=== PATIENT | male | born 1970 | race Caucasian/White ===

== ENCOUNTER 2022-06-08 10:47 | Day surgery (SDC) | payer MEDICAID ==
[~2022-06-08 10:47] MED LIST: FAMO20 PO; INSU200I4 SQ; METF-1211 PO; OMEP20CA12 PO; PLEC3TAB2 PO; SODIUM CHLORIDE 0.9% 1,000 ML ONE
[2022-06-08] MEDS ORDERED: SODIUM CHLORIDE 0.9% 1,000 ML IV ONE (11:00)
[2022-06-08 11:12] LABS: COVID AG,FIA SOURCE NASAL SWAB
[2022-06-08 12:07] LABS: GLUCOMETER DEV NAME(LOC) SDS.; GLUCOSE,POINT OF CARE 174 MG/DL (70-110)
[2022-06-13] MEDS ORDERED: GABA-1181 PO (13:06)
[2022-06-13] MEDS ORDERED: ACYC-138 PO (13:06)
== END 2022-06-08 15:10 | disposition home or self-care (01) ==
LOC: SURGERY 10:47
PROVIDERS: ATTEND Internal Medicine Gastroenterology
DX: R10.13 Epigastric pain (principal); K29.50 Unspecified chronic gastritis without bleeding; E11.9 Type 2 diabetes mellitus without complications; G89.29 Other chronic pain; Z79.899 Other long term (current) drug therapy; Z98.890 Other specified postprocedural states; Z20.822 Contact with and (suspected) exposure to COVID-19
CPT/HCPCS: 43239; 87426; 88305; 82962; C1769; J7030; C9803

== ENCOUNTER 2022-06-14 08:07 | Day surgery (SDC) | payer MEDICAID ==
[~2022-06-14] VITALS: Ht 180.3 cm; Wt 89.1 kg
[~2022-06-14 08:07] MED LIST changes: +ACYC-138 PO; +GABA-1181 PO; -OMEP20CA12 PO; -PLEC3TAB2 PO; +SODIUM CHLORIDE 0.9% 1,000 ML IV ONE
[2022-06-14 08:44] LABS: COVID AG,FIA SOURCE NASOPHARYNGEAL
[2022-06-14 09:16] LABS: GLUCOMETER DEV NAME(LOC) SDS.; GLUCOSE,POINT OF CARE 139 MG/DL (70-110)
[2022-06-14] MEDS ORDERED: SODIUM CHLORIDE 0.9% 1,000 ML ONE (10:16)
[2022-06-14] MEDS ORDERED: PROPOFOL 1% 20 ML VIAL IVP ONE ×2 (12:00)
[2022-06-14] MEDS ORDERED: LIDOCAINE/PF 2% 5 ML SYRINGE IVP ONE ×2 (12:00)
== END 2022-06-14 12:00 | disposition home or self-care (01) ==
LOC: SURGERY 08:07
PROVIDERS: ATTEND Internal Medicine Gastroenterology
DX: K64.0 First degree hemorrhoids (principal); E11.9 Type 2 diabetes mellitus without complications; Z79.899 Other long term (current) drug therapy; Z20.822 Contact with and (suspected) exposure to COVID-19; Z98.890 Other specified postprocedural states
CPT/HCPCS: 45378; 87426; 82962; C9803; J2704; J3490; J7030

== ENCOUNTER 2023-04-18 13:41 | Emergency (ER) | payer OTHER ==
[~2023-04-18] VITALS: Ht 180.3 cm; Wt 80.0 kg
[~2023-04-18 13:41] MED LIST changes: -SODIUM CHLORIDE 0.9% 1,000 ML IV ONE; -SODIUM CHLORIDE 0.9% 1,000 ML ONE
[2023-04-18 13:45] VITALS: TEMP 98.4
[2023-04-18] MEDS ORDERED: EMPA10TA3 PO (13:47)
[2023-04-18] MEDS ORDERED: PLEC3TAB2 PO (13:48)
[2023-04-18] MEDS ORDERED: GABA600T10 PO (13:48)
[2023-04-18] MEDS ORDERED: SODIUM CHLORIDE 0.9% 1,000 ML IV ONE ×3 (14:15→15:15)
[2023-04-18 14:31] LABS: BASOPHILS % (AUTO) 0.5 % (0.0-2.0); HEMATOCRIT 36.3 % (41-53); LYMPHOCYTES # (AUTO) 1.6 K/uL (1.0-4.8); LYMPHOCYTES % (AUTO) 19.7 % (22.0-44.0); MEAN CORPUSCULAR HEMOGLOBIN 28.9 pg (26.0-34.0); MEAN CORPUSCULAR HGB CONC 33.2 G/dL (31.0-37.0); MEAN CORPUSCULAR VOLUME 87 fL (80-100); MONOCYTES # (AUTO) 0.7 K/uL (0.1-1.0); MONOCYTES % (AUTO) 8.7 % (2.0-9.0); NEUTROPHILS # (AUTO) 5.7 K/uL (1.8-7.7); NEUTROPHILS % (AUTO) 69.1 % (40.0-70.0); PLATELET COUNT (AUTO) 187 K/uL (150-450); RED BLOOD CELL COUNT(AUTO) 4.16 MIL/uL (4.50-5.90); RED CELL DISTRIBUTION WIDTH 13.8 % (11.5-14.5); WHITE BLOOD COUNT (AUTO) 8.2 K/uL (4.5-11.0)
[2023-04-18 14:45] LABS: ANION GAP 7 mmol/L (8-16); CARBON DIOXIDE 29 mmol/L (22-29); CHLORIDE 99 mmol/L (98-107); GLOMERULAR FILTR. RATE CALC > 60 mL/min (>60); GLUCOSE,RANDOM 112 mg/dL (70-110); POTASSIUM 4.1 mmol/L (3.5-5.1); SODIUM SERUM 135 mmol/L (136-145); TROPONIN I-HIGH SENSITIVITY 6 ng/L (<76); UREA NITROGEN, BLOOD 21 mg/dL (7-18)
[2023-04-18 14:46] LABS: LACTIC ACID 0.8 mmol/L (0.4-2.0)
[2023-04-18 14:47] LABS: B-TYPE NATRIURETIC PEPTIDE 50 pg/mL (0-100)
[2023-04-18 14:50] LABS: ALANINE AMINOTRANSFERASE 15 U/L (12-78); ALBUMIN 3.6 g/dL (3.4-5.0); ALKALINE PHOSPHATASE 78 U/L (46-116); ASPARTATE AMINOTRANSFERASE 8 U/L (15-37); BILIRUBIN,TOTAL 0.4 mg/dL (0.1-1.0); LIPASE 37 U/L (16-77); TOTAL PROTEIN, SERUM 7.2 g/dL (6.4-8.2)
[2023-04-18] MEDS ORDERED: ACETAMINOPHEN 500 MG TABLET PO ONE (15:15)
[2023-04-18] MEDS ORDERED: BISACODYL 10 MG RECTAL RECTAL SUPPOSITORY PR PRN (15:30)
[2023-04-18] MEDS ORDERED: MORPHINE SULFATE 2 MG/ML SYRINGE IVP PRN (15:30)
[2023-04-18] MEDS ORDERED: MAGNESIUM HYDROXIDE SUSPENSION 30 ML UDCUP PO PRN (15:30)
[2023-04-18] MEDS ORDERED: FAMOTIDINE 20 MG TABLET PO PRN (15:30)
[2023-04-18] MEDS ORDERED: ONDANSETRON HCL 4 MG/2 ML VIAL IVP PRN (15:30)
[2023-04-18] MEDS ORDERED: HYDROCODONE/ACETAMINOPHEN 5-325 MG TABLET PO PRN (15:30)
[2023-04-18] MEDS ORDERED: ACETAMINOPHEN 325 MG TABLET PO PRN (15:30)
[2023-04-18] MEDS ORDERED: ZOLPIDEM TARTRATE 5 MG TABLET PO PRN (15:30)
[2023-04-18] MEDS ORDERED: HEPARIN SODIUM,PORCINE 5,000 UNITS/ML VIAL SQ SCH (16:00)
[2023-04-18 17:52] VITALS: BP 123/82; PULSE 88; RESP 16
[2023-04-18] MEDS ORDERED: DOCUSATE SODIUM 100 MG CAPSULE PO SCH (21:00)
[2023-04-18] MEDS ORDERED: MIDODRINE HCL 5 MG TABLET PO SCH (21:00)
[2023-04-19] MEDS ORDERED: MetFORMIN HCL 500 MG TABLET PO SCH (08:00)
[2023-04-19] MEDS ORDERED: PANTOPRAZOLE SODIUM 40 MG DR TABLET PO SCH (09:00)
[2023-04-19] MEDS ORDERED: EMPAGLIFLOZIN 10 MG TABLET PO SCH (09:00)
== END 2023-04-18 17:56 | disposition left against medical advice (07) ==
LOC: EMS 13:42
DX: I10 Essential (primary) hypertension (principal); E11.9 Type 2 diabetes mellitus without complications; Z86.69 Personal history of other diseases of the nervous system and sense organs; Z98.890 Other specified postprocedural states
CPT/HCPCS: 99285; 96360; 70450; 71045; 96361; 80053; 82962; 83605; 83690; 83880; 84484; 85025; 93005; J1644; J7030; 36415-L1; 36415-TC